=== PATIENT | male | born 2000 | race Caucasian/White ===

== ENCOUNTER → 2025-07-03 | Outpatient (CLI) | payer OTHER, SELFPAY ==
--- NOTE | 2025-07-03 08:30 | MRI_ITS ---
PROCEDURE: BRAIN W/WO CONTRAST 07/03/2025 REASON FOR EXAM: TINNITUS LEFT EAR TECHNIQUE: Procedure Code: MRIBRWW Modality: MR Procedure: BRAIN W/WO CONTRAST, with additional attention to the internal auditory canals. Multiplanar and multisequence images were obtained. CONTRAST: Clariscan VOLUME: 17 mL intravenous. COMPARISON: None. FINDINGS: Brain: Internal auditory canals appear symmetric and within the normal range. No mass or area of abnormal postcontrast enhancement is seen. No orbital pathology is seen. No intracranial mass or mass effect is seen. No extra-axial fluid collection is noted. Diffusion: Diffusion-weighted images demonstrate no area of restricted diffusion. Ventricles: Normal. Sinuses: Clear. Mastoids: Clear. MRI/Brain W/WO Contrast IMPRESSION: No significant abnormality is identified. Reading Location: [address]
== END | disposition home or self-care (01) ==
DX: H93.12 Tinnitus, left ear (principal)
CPT/HCPCS: 70553; A9575